=== PATIENT | male | born 1980 ===

== ENCOUNTER 2017-12-25 11:15 | Day surgery (SDC) | payer MEDICAID ==
[2017-12-22 11:15] VITALS: BMI 32.5
[2017-12-25] MEDS ORDERED: Propofol 10 mg/ml Inj (20 ML) ONE ×2 (13:05→14:22)
[2017-12-25] MEDS ORDERED: Midazolam 2 MG/2 ML VIAL ONE ×2 (13:05→14:31)
[2017-12-25] MEDS ORDERED: Bupivacaine 0.5% Inj(30mL) ONE (13:06)
[2017-12-25] MEDS ORDERED: CeFAZolin 1 gm in NS 100ml IVPB ONE (13:43)
[2017-12-25] MEDS ORDERED: Bupivacaine 0.5% Inj(30mL) IJ ONE (15:10)
[2017-12-25] MEDS ORDERED: HYDROmorphone 0.5 mg/0.5 ml ISec IVP PRN (15:11)
[2017-12-25] MEDS ORDERED: Lactated Ringer's 1,000 ML IV SCH (15:15)
--- NOTE | 2017-12-25 15:23 | PCM.SURG1 ---
Surgeon's Initial Post Op Note - Surgeon's Notes Surgeon: LORENE RomeroM Promotional Representative: Dr. Niko Maldonado DPM PGY2 Type of Anesthesia: IV Sedation, Local Anesthesia Administered By: Dr. Abarca Pre-Operative Diagnosis: Right achilles tendon rupture Operative Findings: See dictation report. M- Arthrex PARS achilles repair system and speedbridge. I- Popliteal block preoperatively, 2 cc Amnioflex intra -op, 10 cc 0.5% marcaine plain postoperatively Post-Operative Diagnosis: Same Operation Performed: Primary repair of right achilles tendon with Arthrex PARS system Specimen/Specimens Removed: None Estimated Blood Loss: EBL {In ML}: 3 Blood Products Given: N/A Drains Used: No Drains Post-Op Condition: Good Date of Surgery/Procedure: 12/25/17 Time of Surgery/Procedure: 15:23
[2017-12-25 15:28] VITALS: RESP 18
[2017-12-25 16:12] VITALS: PULSE 66; TEMP 97.8; O2SAT 97
[2017-12-25 17:32] VITALS: BP 132/78
--- NOTE | 2017-12-28 08:12 | OP ---
Copied To: Niko Maldonado DPM Attending MD: Koby Rice DPM PROCEDURE DATE: 12/25/2017 SURGEON: Koby Rice DPM PUMP INSTALLATION AND SERVICER: Niko Maldonado, PGY-2 ANESTHESIOLOGIST: Dr. Abarca. TYPE OF ANESTHESIA: IV sedation with local. PREOPERATIVE DIAGNOSIS: Ruptured right Achilles tendon. POSTOPERATIVE DIAGNOSIS: Ruptured right Achilles tendon. NAME OF PROCEDURE: Primary repair of right Achilles tendon with Arthrex PARS system. INDICATIONS: The patient is a 37-year-old male with the above diagnosis. The patient has exhausted all conservative treatment options at this time and now requires surgical intervention. The patient signed the consent after careful explanation of risks, benefits, complications, and alternatives for the surgical procedures. No guarantees were given nor implied. N.p.o. status was confirmed prior to taking the patient to the OR. PREPARATION: The patient was brought into the operating room and placed on the operating room table in a prone position. A time-out was performed prior to identification of the correct patient and procedure. Preoperatively, a popliteal block was performed and then IV sedation was administered to the patient. The right lower extremity was then prepped and draped in a normal sterile manner, and the procedure began. A thigh tourniquet at a pressure setting of 350 mmHg was utilized for the entirety of the procedure. PROCEDURE: Primary surgical repair of right Achilles tendon. Attention was then turned to the right lower extremity where it was noticed that there was a palpable dell at the level of the midsubstance of the Achilles. Previous MRI imaging showed that there was a complete tear of the Achilles tendon at this level. Utilizing a #15 blade, sharp dissection was carried down to the level of the paratenon with care taken to retract all vital neurovascular structures during the dissection. The paratenon was then sharply dissected as well, using a #15 blade, thereby exposing the complete rupture of the Achilles tendon. Utilizing a hemostat, the paratenon was freed proximally and distally along the level of the Achilles tendon. An Arthrex PARS Achilles jig system with SpeedBridge was then utilized in the standard manner to reduce the gap seen in the Achilles tendon and repaired primarily by anchoring it down into the calcaneus of the patient's right foot. Once this procedure was completed, the right lower extremity was dorsiflexed at the ankle to ensure that the Achilles tendon strength was appropriate and it was found that it was. Ramsey test was also performed and it was found that the patient had appropriate dorsiflexion of the foot with this testing. The surgical site was then flushed with copious amounts of normal sterile saline. Paratenon was re-approximated using 3-0 Vicryl. A 3-0 Vicryl was also used for subcutaneous closure of the incision site and 4-0 Prolene was used to close the skin at the incision site where the Arthrex PARS system was used as well as the two small distal stab incision sites that are used over the SpeedBridge anchorage into the calcaneus more distally. The wound was then dressed with Adaptic, gauze, Kerlix and a posterior splint, and the procedure was completed. POSTOPERATIVE CONDITION: The patient tolerated the anesthesia and procedure well, and was escorted to the recovery room with vital signs stable and neurovascular status intact to the right lower extremity. The patient is to remain nonweightbearing to the right lower extremity with the use of crutches. Patient will follow up with Dr. Rice on discharge from the hospital within one week. Niko Maldonado DPM Koby Rice DPM
== END 2017-12-25 17:30 | disposition home or self-care (01) ==
LOC: SDS 11:15
PROVIDERS: ATTEND Podiatrist Foot & Ankle Surgery
DX: S86.011A Strain of right Achilles tendon, initial encounter (principal)
CPT/HCPCS: 27650; 97116; C9399; J0690; J1170; J1885; J2001; J2250; J2405; J2704; J3010; J7120 ×2